=== PATIENT | female | born 1945 | race Caucasian/White ===

== ENCOUNTER → 2017-01-31 | Outpatient (CLI) | payer OTHER, MEDICARE | END | disposition home or self-care (01) | LOC: C.RDSM 12:12 | PROVIDERS: ATTEND Physical Medicine & Rehabilitation | DX: M54.5 Low back pain (principal) ==

== ENCOUNTER → 2017-03-01 | Outpatient (CLI) | payer OTHER, MEDICARE ==
--- NOTE | 2017-03-01 11:45 | DIAGNOSTIC IMAGING REPORT ---
CT OF THE CHEST WITHOUT IV CONTRAST CLINICAL HISTORY: Shortness of breath. COMPARISON STUDY: No previous studies for comparison. CT DOSE: 208.10 mGy.cm TECHNIQUE: Axial images of the chest were obtained without IV contrast. Images were reviewed in the axial, sagittal, and coronal planes. IV contrast was not administered for this examination. A dose lowering technique was utilized adhering to the principles of ALARA. FINDINGS: No enlarged axillary, mediastinal or hilar lymph nodes are present. Size of the heart is at the upper limits of normal. There is no pericardial effusion. Central airways are patent. Moderate upper lobe predominant emphysema is noted. There are biapical opacities which favor scarring. Minimal subpleural opacities are noted within the superior segment of the left lower lobe. This favors atelectasis although a minimal infectious process could appear similar. There is no confluent consolidation. No pneumothorax or pleural effusion is present. There is no cavitation. Bony thorax is unremarkable. Visualized portions of the upper abdomen demonstrate extensive atherosclerotic plaque of the proximal abdominal aortic and major branch vessels. There is moderate plaque of the thoracic aorta. Moderate coronary artery calcification is present. IMPRESSION: 1. Moderate upper lobe predominant emphysema. 2. Minimal subpleural opacity within the superior segment of the left lower lobe. This likely reflects atelectasis although an infectious process such as bronchiolitis could appear similar. 3. No thoracic lymphadenopathy. Electronically signed by: Sb Menezes M.D. 03/01/2017 11:44 AM Dictated Date/Time: 03/01/2017 11:35 AM
== END | disposition home or self-care (01) ==
LOC: C.CTS 11:07
PROVIDERS: ATTEND Family Medicine
DX: J43.9 Emphysema, unspecified (principal)